=== PATIENT | female | born 1980 | race Caucasian/White ===

== ENCOUNTER 2017-03-04 19:06 | Emergency (ER) | payer SELFPAY ==
--- NOTE | 2017-03-04 19:32 | EDPHY ---
H & P Time Seen by Provider: 03/04/17 19:08 HPI/ROS: CHIEF COMPLAINT: Suicidal ideation HISTORY OF PRESENT ILLNESS: 37-year-old female with depression presents with suicidal ideation. She was upset about her work schedule today and between her 2 shifts, she drink some alcohol. She was sitting in the restaurant and the police were called because of public intoxication. On their arrival, she complained of suicidal ideation. She states that she always feels suicidal, and states that if she did not commit suicide today that she would do it tomorrow. Her plan is to either hang herself or to run in front of traffic. She takes lithium as prescribed. She was placed on a mental health hold by PD. No prior mental health admission. No homicidal ideation. REVIEW OF SYSTEMS: Constitutional: No fever, no recent illness Eyes: No visual changes ENT: No sore throat Respiratory: No cough, no shortness of breath Cardiac: No chest pain Gastrointestinal: no dysuria] Musculoskeletal: No leg pain or swelling Skin: No rash Neurological: No headache, no weakness Psychiatric: depression (Raysa Fernandez) Past Medical/Surgical History: Depression (Raysa Fernandez) Social History: Lives with a roommate (Raysa Fernandez) Physical Exam: General Appearance: Alert, pleasant Eyes: Pupils equal and round, no conjunctival pallor or injection ENT, Mouth: Mucous membranes moist Neck: Normal inspection Respiratory: Lungs are clear to auscultation Cardiovascular: Regular rate and rhythm Gastrointestinal: Abdomen is soft and nontender Neurological: A&O, nonfocal, normal gait Skin: Warm and dry, no rash Extremities: ecchymosis and abrasion on right upper arm Psychiatric: Mood and affect normal (Raysa Fernandez) Constitutional: Initial Vital Signs Temperature (C) 36.3 C 03/04/17 19:41 Heart Rate 78 03/04/17 19:41 Respiratory Rate 18 03/04/17 19:41 Blood Pressure 130/93 H 03/04/17 19:41 O2 Sat (%) 98 03/04/17 19:41 O2 Delivery Mode Room Air Allergies/Adverse Reactions: latex Allergy (Verified 03/04/17 19:43) Home Medications: Medication Instructions Recorded LEVOTHYROXINE SODIUM 03/04/17 [place] Carbonate 03/04/17 Medical Decision Making ED Course/Re-evaluation: 1:20 a.m.- The patient was signed out to me at approximately 11:00 p.m.. She has been stable during my shift. She was evaluated by the mental health team would like to lift her M1 hold that she is no longer feeling suicidal now that she is more sober. They will provide her with multiple resources for outpatient management of her alcohol abuse and depression. (Genoveva Larson) This patient presents with suicidal to ideation on an M1 hold. She appears intoxicated with alcohol. (Raysa Fernandez) - Data Points Laboratory Results: Laboratory Results 03/04/17 19:37 03/04/17 19:37 Medications Given: Discontinued Medications Ibuprofen (Motrin) 600 mg PO EDNOW ONE Stop: 03/05/17 01:24 Last Admin: 03/05/17 01:26 Dose: 600 mg Departure - Departure Disposition: Home, Routine, Self-Care Clinical Impression: Suicidal ideation Alcohol intoxication Qualifiers: Complication of substance-induced condition: uncomplicated Qualified Code(s): F10.920 - Alcohol use, unspecified with intoxication, uncomplicated Condition: Good Instructions: Depression (ED), Alcohol Intoxication (ED) Additional Instructions: Follow up with mental health as suggested. Referrals: [facility] [Outside] - As per Instructions
[2017-03-04 19:49] LABS: % IMMATURE GRANULYOCYTES 0.1 % (0.0-1.1); ABSOLUTE IMMATURE GRANULOCYTES 0.01 10^3/uL (0.00-0.10); ADD DIFF? NO; ADD MORPH? NO; ADD SCAN? NO; ATYPICAL LYMPHOCYTE FLAG 10 (0-99); FRAGMENT RBC FLAG 0 (0-99); HEMATOCRIT 40.5 % (38.0-47.0); HEMOGLOBIN 13.8 g/dL (12.6-16.3); LEFT SHIFT FLG 0 (0-99); LIPEMIA HEMOLYSIS FLAG 90 (0-99); MEAN CELL HEMOGLOBIN 31.5 pg (27.9-34.1); MEAN CELL HEMOGLOBIN CONCENTR. 34.1 g/dL (32.4-36.7); MEAN CELL VOLUME 92.5 fL (81.5-99.8); MEAN PLATELET VOLUME 8.8 fL (8.7-11.7); PLATELET CLUMPS FLAG 0 (0-99); PLATELET COUNT 399 10^3/uL (150-400); RED BLOOD CELL COUNT 4.38 10^6/uL (4.18-5.33); RED CELL DISTRIBUTION WIDTH 12.3 % (11.5-15.2)
[2017-03-04 19:59] LABS: ANION GAP 21 mEq/L (8-16); CALCIUM 9.9 mg/dL (8.5-10.4); CARBON DIOXIDE 17 mEq/l (22-31); CHLORIDE 112 mEq/L (97-110); CREATININE 0.8 mg/dL (0.6-1.0); ETHANOL SERUM 206 mg/dL (0-10); GLOMERULAR FILTRATION RATE > 60; GLUCOSE 101 mg/dL (70-100); LITHIUM 0.9 mEq/L (0.6-1.2); SODIUM 150 mEq/L (134-144)
[2017-03-04 23:35] VITALS: TEMP 98.1
[2017-03-05] MEDS ORDERED: IBUPROFEN 600 MG TAB PO ONE (01:23)
[2017-03-05 01:42] VITALS: BP 118/67; PULSE 78; RESP 16; O2SAT 96
== END 2017-03-05 01:44 | disposition home or self-care (01) ==
DX: R45.851 Suicidal ideations (principal); F10.920 Alcohol use, unspecified with intoxication, uncomplicated; Z91.040 Latex allergy status
CPT/HCPCS: 80305; G0480